=== PATIENT | female | born 1980 | race Caucasian/White ===

== ENCOUNTER → 2017-02-08 | Outpatient (CLI) | payer OTHER ==
--- NOTE | ~2017-02-08 | US128 ---
[id number] [facility] [place] [address] [facility]. [place], [place] [address] [id number] O MR#: [id number] Acc #: [id number] NAME: SRUTHI GUADARRAMA : 1980 SEX: F STUDY DATE/TIME: 02/08/2017 16:24 UNIT: [facility] ROOM: STUDY DESCRIPTION: Thyroid Attending Physician: Ludwin Taveras M.D. Referring Physician: Ludwin Taveras M.D. Ordering Physician: Ludwin Taveras M.D. Primary Care Physician: Ludwin Taveras M.D. MEDICAL IMAGING REPORT This report is preliminary unless electronic signature is present EXAM Thyroid ultrasound INDICATIONS Hypothyroidism. COMPARISON None available. FINDINGS The right lobe of the thyroid measures 4.2 x 1.7 x 1.2 cm. The left lobe measures 3.8 x 2 x 1.2 cm. The isthmus measures 0.9 cm in thickness. There is coarsened background thyroid parenchyma. Background vascularity is within normal limits. There is a nodule in the inferior right thyroid measuring 1.2 x 1.1 x 1 cm. No microcalcifications. A nodule in the isthmus measures 2 x 0.8 x 1 cm. No microcalcifications. A nodule in the inferior left thyroid measures 2.3 x 2.2 x 1.3 cm. No microcalcifications. Please note that given the coarsened echotexture of the thyroid, these could represent just heterogeneous appearance of the thyroid. IMPRESSION 1. Coarsened, heterogeneous thyroid compatible with a chronic thyroiditis. 2. 3 nodules in the thyroid gland. The largest nodule in the thyroid and also in the left lower thyroid meet current published criteria to warrant further evaluation with fine-needle aspiration. Dictated by... Terrance Regalado M.D. THIS IS AN ELECTRONICALLY VERIFIED REPORT Terrance Regalado M.D. at 02/09/2017 3:04 PM RPDenny/sal TD: 02/09/2017 00:23 JOB #: [id number] MEDICAL IMAGING REPORT Page 1 of 1 COPY
== END | disposition home or self-care (01) ==
LOC: CGUS 14:58
DX: E03.9 Hypothyroidism, unspecified (principal); E04.2 Nontoxic multinodular goiter
CPT/HCPCS: 76536

== ENCOUNTER → 2017-02-15 | Outpatient (CLI) | payer OTHER ==
--- NOTE | ~2017-02-15 | XA230 ---
[facility] A Service of [facility] RADIOLOGY TEXT RESULTS PATIENT: SRTUHI GUADARRAMA LOCATION: [facility] : [birth year] UNIT #: [id number] AGE: [address]: Ludwin Taveras MD SEX: F ORDER DR: [id number] [address] [place], [place] [address] [id number] O MR#: [id number] Acc #: [id number] NAME: SRUTHI GUADARRAMA : 1980 SEX: F STUDY DATE/TIME: 02/15/2017 13:00 UNIT: [facility] ROOM: STUDY DESCRIPTION: XA FNA Attending Physician: Ludwin Taveras M.D. Referring Physician: Ludwin Taveras M.D. Ordering Physician: Ludwin Taveras M.D. Primary Care Physician: Ludwin Taveras M.D. MEDICAL IMAGING REPORT This report is preliminary unless electronic signature is present EXAM Ultrasound guided thyroid aspiration dated 02/15/2017 HISTORY A 36-year-old with an inhomogeneous gland and multiple nodules, the largest in the left lower lobe. TECHNIQUE Procedure attendant risks and options were discussed with the patient and her . They understand and wishes to proceed. FINDINGS Ultrasound examination was performed confirming a small hypoechoic nodule measuring over a centimeter in the lower pole. This nodule was localized by ultrasound. Skin was prepped with Chlorhexidine and draped utilizing maximal sterile barrier technique including sterile gloves. Under local anesthesia and ultrasound guidance, 325 gauge aspirates were obtained. This was very tolerated. Needle was removed. hemostasis achieved and the patient subsequent discharged. Two ultrasound images were recorded. CONCLUSION Successful ultrasound-guided aspiration of the patient's left lower pole thyroid nodule. Dictated by... Lion Ramires M.D. THIS IS AN ELECTRONICALLY VERIFIED REPORT Lion Ramires M.D. at 02/17/2017 2:20 PM SHERIF/rajesh [facility] A Service of [facility] RADIOLOGY TEXT RESULTS PATIENT: SRUTHI GUADARRAMA LOCATION: [facility] : [birth year] UNIT #: [id number] AGE: [address]: Ludwin Taveras MD SEX: F ORDER DR: TD: 02/16/2017 00:06 JOB #: [id number] MEDICAL IMAGING REPORT Page 1 of 1 COPY
== END | disposition home or self-care (01) ==
LOC: CIVR 12:33
DX: E04.1 Nontoxic single thyroid nodule (principal); E03.9 Hypothyroidism, unspecified
CPT/HCPCS: 76942; 88173; 88305